=== PATIENT | female | born 1985 | race Caucasian/White ===

== ENCOUNTER 2017-08-27 09:20 | Emergency (ER) | END 2017-08-27 13:42 | disposition home or self-care (01) ==

== ENCOUNTER 2018-06-21 07:51 | Emergency (ER) | payer MEDICAID ==
[~2018-06-21] VITALS: Ht 160 cm; Wt 93.6 kg
[2018-06-21 07:56] VITALS: BP 143/77; PULSE 110; RESP 19; Ht 160 cm; Wt 93.6 kg
[2018-06-21] MEDS ORDERED: BEN25 PO (08:56)
[2018-06-21] MEDS ORDERED: ACET500C5 PO (08:56)
--- NOTE | 2018-06-21 16:20 | ERD ---
ER Documentation Chief Complaint Chief Complaint FLU SX NASAL CONGESTION 37 WEEKS . NO ABD PAIN NO VB HPI 33-year-old female patient with no significant past medical history is currently 37 weeks . Patient is a presents to ED complaining of nasal congestion, headache. Denies any cough, chest pain, shortness of breath, abdominal pain, nausea, vomiting, diarrhea. Denies any vaginal bleeding, vaginal discharge, dysuria, urgency, frequency, hematuria. ROS All systems reviewed and are negative except as per history of present illness. Medications Home Meds Active Scripts Acetaminophen* (Tylophen*) 500 Mg Capsule, 1 CAP PO Q6H PRN for PAIN AND OR ELEVATED TEMP, #20 CAP Prov:NILDA SNOW PA-C 06/21/18 Diphenhydramine Hcl* (Benadryl*) 25 Mg Cap, 25 MG PO Q6, #30 CAP Prov:NILDA SNOW PA-C 06/21/18 Allergies Allergies: Coded Allergies: No Known Allergy (Unverified , 05/05/15) PMhx/Soc History of Surgery: No Anesthesia Reaction: No Hx Neurological Disorder: No Hx Respiratory Disorders: No Hx Cardiac Disorders: No Hx Psychiatric Problems: No Hx Alcohol Use: No Hx Substance Use: No Hx Tobacco Use: No FmHx Family History: No diabetes, No coronary disease Physical Exam Vitals Vital Signs Date Temp Pulse Resp B/P (MAP) Pulse Ox O2 O2 Flow FiO2 Time Delivery Rate 06/21/18 97.8 110 19 143/77 99 07:56 (99) Physical Exam Const: Bpm-krl-rvttzcibs, well-nourished. In no acute distress. Head: Atraumatic, normocephalic. No tenderness of the bilateral sinuses. Eyes: Normal Conjunctiva without injection. No purulent discharge. PERRL. EOMI ENT: Normal external ear. Ear canal without erythema. Tympanic membrane pearly mccord without effusion or bulging. Nasal canal clear with normal turbinates. Moist oropharynx without tonsillar exudates. Non-erythematous pharynx. Uvula midline. No drooling. No trismus. Neck: Full range of motion. No meningismus. No cervical lymphadenopathy. Resp: Clear to auscultation bilaterally. No wheezing, rhonchi, rales, or crackles. No accessory muscle use. No retractions. Cardio: Regular rate and rhythm. No murmurs, rubs or gallops. Abd: Soft, non tender, non distended. Normal bowel sounds. No palpable masses. No rebound tenderness. No guarding. Skin: No petechiae or rashes Back: No midline tenderness. No CVA tenderness. Ext: No cyanosis, or edema. Neur: Awake and alert. Psych: Normal Mood and Affect Procedures/MDM 33-year-old female patient with no significant past medical history is currently 36-weeks , complaining of nasal congestion, and headache. Patient is afebrile and nontoxic-appearing. Headache is also probable tension headache. Low suspicion for intracranial bleed, subarachnoid hemorrhage, meningitis, TIA, stroke, seizures, subdural hematoma, epidural hematoma, or other emergent conditions. Patient will be given a prescription for Benadryl and to continue nasal saline sprays. Differentials include allergic rhinitis versus viral etiology. This patient presents to the ED with symptoms consistent with a viral acute upper respiratory infection. Patient's physical exam include lungs which were clear to auscultation and a normal pulse oximetry. There is a low suspicion for pneumonia, pneumothorax, mononucleosis, pulmonary embolism, epiglottitis, otitis media, otitis externa, viral/strep pharyngitis, sinusitis, myocarditis, pericarditis, endocarditis, peritonsillar abscess, mastoiditis, retropharyngeal abscess, meningitis, sepsis, acute abdomen or other emergent conditions. Patient will be escorted upstairs to OB triage to evaluate baby. Diagnosis: Nasal Congestion, Headache Discharge medications: Tylenol, Benadryl Follow up with primary care physician in 1-2 days. Instructed patient to return to the ED sooner for any worsening symptoms. Patient's questions were answered. Patient is hemodynamically stable. Patient understood and agreed with discharge plan. Patient discharged stable. Disclaimer: Inadvertent spelling and grammatical errors are likely due to EHR/dictation software use and do not reflect on the overall quality of patient care. Also, please note that the electronic time recorded on this note does not necessarily reflect the actual time of the patient encounter. Departure Diagnosis: Primary Impression: Nasal congestion Additional Impression: Headache Headache type: unspecified Headache chronicity pattern: unspecified pattern Intractability: not intractable Qualified Codes: R51 - Headache Condition: Stable Patient Instructions: Headache, Unspecified, Allergic Rhinitis Referrals: COMMUNITY CLINICS YOU HAVE RECEIVED A MEDICAL SCREENING EXAM AND THE RESULTS INDICATE THAT YOU DO NOT HAVE A CONDITION THAT REQUIRES URGENT TREATMENT IN THE EMERGENCY DEPARTMENT. FURTHER EVALUATION AND TREATMENT OF YOUR CONDITION CAN WAIT UNTIL YOU ARE SEEN IN YOUR DOCTORS OFFICE WITHIN THE NEXT 1-2 DAYS. IT IS YOUR RESPONSIBILITY TO MAKE AN APPOINTMENT FOR FOLOW-UP CARE. IF YOU HAVE A PRIMARY DOCTOR --you should call your primary doctor and schedule an appointment IF YOU DO NOT HAVE A PRIMARY DOCTOR YOU CAN CALL OUR PHYSICIAN REFERRAL HOTLINE AT IF YOU CAN NOT AFFORD TO SEE A PHYSICIAN YOU CAN CHOSE FROM THE FOLLOWING [facility] [address] [facility] [address] [facility] [facility] [address] [facility] [facility] [address] [facility] [address] [facility]. [facility] [address] [facility]. [facility] YOU HAVE RECEIVED A MEDICAL SCREENING EXAM AND THE RESULTS INDICATE THAT YOU DO NOT HAVE A CONDITION THAT REQUIRES URGENT TREATMENT IN THE EMERGENCY DEPARTMENT. FURTHER EVALUATION AND TREATMENT OF YOUR CONDITION CAN WAIT UNTIL YOU ARE SEEN IN YOUR DOCTORS OFFICE WITHIN THE NEXT 1-2 DAYS. IT IS YOUR RESPONSIBILITY TO MAKE AN APPOINTMENT FOR FOLOW-UP CARE. IF YOU HAVE A PRIMARY DOCTOR --you should call your primary doctor and schedule and appointment IF YOU DO NOT HAVE A PRIMARY DOCTOR YOU CAN CALL OUR PHYSICIAN REFERRAL HOTLINE AT . IF YOU CAN NOT AFFORD TO SEE A PHYSICIAN YOU CAN CHOSE FROM THE FOLLOWING [facility] INSTITUTIONS: [facility] [address] [place] [address] [facility] [address] [place] [address] [facility] [address] [place] [address] [facility] URGENT CARE/SPECIALTIES Additional Instructions: Usted yan sido dado de nikole del ER en 06/21/18 a las 9am sin embargo usted debe ser escoltado arriba a la Triage del OB sobre la descarga para cerciorarse de que el beb est haciendo alba. Llame al doctor MAANA y apoorva yvonne IRVING PARA DENTRO DE 2-3 FLEMING.Dgale a la secretaria que nosotros le instruimos hacer esta irving.Avise o llame si gomez condicin se empeora antes de la irving. Regresa aqui si peor o no mejor.. NILDA SNOW PA-C Jun 21, 2018 16:20
== END 2018-06-21 09:25 | disposition home or self-care (01) ==
LOC: FTE 07:51
DX: O99.89 Other specified diseases and conditions complicating pregnancy, childbirth and the puerperium (principal); R09.81 Nasal congestion; R51 Headache; Z3A.37 37 weeks gestation of pregnancy
CPT/HCPCS: 99282

== ENCOUNTER 2018-07-18 10:18 | Inpatient (IN) | payer MEDICAID ==
[~2018-07-18] VITALS: Ht 165.1 cm; Wt 95.3 kg
[~2018-07-18 10:18] MED LIST: ACET500C5 PO; BEN25 PO
[2018-07-18] MEDS ORDERED: PREN1TAB71 PO (10:39)
[2018-07-18 10:40] VITALS: Ht 165.1 cm; Wt 95.3 kg
[2018-07-18 10:43] VITALS: BP 129/83
[2018-07-18] MEDS ORDERED: LIDOCAINE 1% (MPF) 30 ML INJ INJ PRN (12:00)
[2018-07-18] MEDS ORDERED: MISOPROSTOL 200 MCG TAB PR PRN (12:00)
[2018-07-18] MEDS ORDERED: BUTORPHANOL 1 MG INJ IV PRN (12:00)
[2018-07-18] MEDS ORDERED: METHYLERGONOVINE 0.2 MG INJ IM PRN (12:00)
[2018-07-18] MEDS ORDERED: BUTORPHANOL 2 MG INJ IV PRN (12:00)
[2018-07-18] MEDS ORDERED: OXYTOCIN 30 UNITS/LR 500 ML IV SCH ×3 (12:00)
[2018-07-18] MEDS ORDERED: OXYTOCIN 30 UNITS/LR 500 ML IV PRN (12:00)
[2018-07-18] MEDS ORDERED: CARBOPROST 250 MCG INJ IM PRN (12:00)
--- NOTE | 2018-07-18 12:11 | TRIAGE ---
OB Triage Datetime Report Generated by CPN: 07/18/2018 12:11 Datetime: 07/18/2018 12:04 Comments: TRANSFERED TO LABOR AND DELIVERY REPORT GIVEN TO YESICA Datetime: 07/18/2018 11:42 Stage of : OB Triage Datetime: 07/18/2018 11:32 Comments: US AT BEDSIDE Datetime: 07/18/2018 10:55 Stage of : OB Triage Labor Evaluation Frequency: 1-5 Monitor Mode: External Duration (sec)2399: 30-50 Pattern: Normal: <= 5 Contractions in 10 Minutes Resting Tone [place]: Relaxed Heart Rate FHR Baseline Rate: 145 Monitor Mode: External US Variability: Moderate 6-25 bpm Accelerations: 15X15 Decelerations: None Category: Category I Pain Presence: None/Denies Pain Type: N/A Datetime: 07/18/2018 10:31 Stage of : OB Triage Assessment Type: Triage Maternal Assessment Level of Consciousness: Fully Conscious DTR's/Clonus: DTRs 2+; No Clonus Headache: Denies Blurred Vision: No Respiratory Effort: Unlabored; Regular Rhythm; Equal Expansion Breath Sounds, Left: Clear and Equal Breath Sounds, Right: Clear and Equal Nausea/Vomiting: Denies RUQ Epigastric Pain: Denies Lower Extremities Edema: None Degree: None Upper Extremities Edema: None Facial Edema: None Temperature Route: Oral Fall Risk Assessment History of Falling: (0) No Secondary Diagnosis: (0) No Ambulatory Aid: (0) Bedrest/Nurse Assist IV Therapy: (0) No Gait: (0) Normal/Bedrest/Immobile Mental Status: (0) Oriented to Own Ability Fall Score: 0 Fall Risk Score Definition: No Risk: No action required Monitor Mode: External (Annotations: INITIAL PLACEMENT ) Monitor Mode: External US (Annotations: INIITIAL PLACEMENT ) Pain Assessment Pain Scale: 0 Pain Presence: None/Denies Pain Type: N/A Datetime: 07/18/2018 10:30 Time of Arrival: 07/18/2018 10:20 EGA: 40.2 Arrived By: Ambulatory Arrived From: Dr. Murillo Chief Complaint: SENT FROM CLINIC FOR NST BPP EFW POST DATES Movement: Present Contractions: Irregular Rupture of Membranes: Denies Vaginal Bleeding: None Vaginal Discharge: Denies Recent Sexual Intercouse: Denies Abdominal Trauma: Not Applicable Patient Complaints: Contractions; Other Time Provider Notified: 07/18/2018 11:40 Provider Notified: DR. GUY Initial Plan: NST BP EFW, Datetime: 04/16/2018 12:04 Fall Score: 0 Fall Risk Score Definition: No Risk: No action required Datetime: 04/16/2018 12:02 EGA: 27.0
[2018-07-18] MEDS: LACTATED RINGER'S 1,000 ML IV SCH ×2 (14:27→23:06)
--- NOTE | 2018-07-18 18:03 | HP ---
"Date/Time of Note Date/Time of Note DATE: 07/18/18 TIME: 17:54 OB - History Hx of Present Free Text/Dictation 33 y.o G5| HOSSEIN 07/16/18 at 40w2d for NST BPP for postdate NST reactive and BPP 8/8 VE 2cm patient desire to have delivery after gave her option to decide. admitted for expectant management poss pitocin augmentation. Chief Complaint: postdate for augmentation/induction Estimated Due Date: Jul 16, 2018 : 5 Para: 2 Spontaneous : 2 Therapeutic : 0 Care: Other Ultrasounds: Other Obstetrical Complications: None Medical Complications: None Past Family/Social History * Past Medical, Surgical, Family and Obstetric Histories reviewed from chart. Blood Type: O- Rubella: unknown RPR/VDRL: Unknown GBS Status: Unknown HBsAG: Unknown OB Admission Exam Vital Signs Vital Signs Vital Signs Date Temp Pulse Resp B/P (MAP) Pulse Ox O2 O2 Flow FiO2 Time Delivery Rate 07/18/18 98.5 129/83 10:43 (98) Physical Exam HEENT: WNL Heart: Rhythm Normal Lungs: Clear, Equal Abdomen: WNL Extremities: Normal Reflexes: Normal Cervical Dilatation: 2cm Effacement: Other Station: Other Membranes: Intact Amniotic Fluid: Unevaluable Heart Rate: 140's Accelerations: Accelerations Present Decelerations: No Decelerations Varibility: Moderate Contractions on Admission: < 5 Minutes Apart Intensity: Mild Last 72 hours Lab Results CBC & BMP 07/18/18 13:23 OB Assessment/Plan Other Assessment: IUP 40w2d in early labor Plan: Expectant Management, Other (poss augmentation) PENG GUY MD Jul 18, 2018 18:03"
[2018-07-19] MEDS: LACTATED RINGER'S 1,000 ML IV SCH ×4 (00:41→23:43)
--- NOTE | 2018-07-19 00:47 | PREAC ---
Date/Time of Note Date/Time of Note DATE: 07/19/18 TIME: 00:46 Anesthesia Eval and Record Evaluation Time Pre-Procedure Interview DATE: 07/19/18 TIME: 00:46 Age 33 Sex female NPO: 8 hrs Preoperative diagnosis IUP Planned procedure L&D Epidural Past Medical History Past Medical History: None Surgery & Anesthesia Issues No known issue Meds Anticoagulation: No Beta Stevo within 24 hr: No Reason Beta Stevo not given: Pt. not on B-Stevo Reported Medications Vit No.130/Iron/FA ( Tablet) 1 Each Tablet, 1 EACH PO 07/18/18 Discontinued Scripts Acetaminophen* (Tylophen*) 500 Mg Capsule, 1 CAP PO Q6H PRN for PAIN AND OR ELEVATED TEMP, #20 CAP Prov:NILDA SNOW PA-C 06/21/18 Diphenhydramine Hcl* (Benadryl*) 25 Mg Cap, 25 MG PO Q6, #30 CAP Prov:NILDA SNOW PA-C 06/21/18 Current Medications Lactated Ringer's 1,000 ml @ 125 mls/hr Q8H IV Last administered on 07/19/18at 00:41; Admin Dose 125 MLS/HR; Start 07/18/18 at 11:59 Butorphanol Tartrate (Stadol) 1 mg Q2H PRN IV .PAIN; Start 07/18/18 at 12:00 Butorphanol Tartrate (Stadol) 2 mg Q2H PRN IV .PAIN; Start 07/18/18 at 12:00 Lidocaine (Xylocaine 1% (Mpf)) 30 ml ONCE PRN INJ .EPISIOTOMY; Start 07/18/18 at 12:00 Oxytocin/Lactated Ringer's 500 ml @ 500 mls/hr ONCE POST IV ; Start 07/18/18 at 12:00 Oxytocin/Lactated Ringer's 500 ml @ 125 mls/hr POST IV ; Start 07/18/18 at 12:00 Oxytocin/Lactated Ringer's 500 ml @ 0 mls/hr ONCE PRN IV .VAGINAL BLEEDING; Start 07/18/18 at 12:00 Methylergonovine Maleate (Methergine) 0.2 mg ONCE PRN IM .VAGINAL BLEEDING; Start 07/18/18 at 12:00 Carboprost Tromethamine (Hemabate) 250 mcg ONCE PRN IM .VAGINAL BLEEDING; Start 07/18/18 at 12:00 Misoprostol (Cytotec) 1,000 mcg ONCE PRN PA .VAGINAL BLEEDING; Start 07/18/18 at 12:00 Oxytocin/Lactated Ringer's 500 ml @ 0 mls/hr FOR AUGMENTATION IV Last administered on 07/18/18at 14:34; Admin Dose 1 MLS/HR; Start 07/18/18 at 12:00 Meds reviewed: Yes Allergies Coded Allergies: No Known Drug Allergies (Verified Allergy, Unknown, 07/18/18) Allergies Reviewed: Yes Labs/Studies Labs Reviewed: Reviewed by anesthesiologist Result Diagram: 07/18/18 1323 Laboratory Tests 07/18/18 13:23 Blood Bank Test 07/18/18 13:23 Antibody Screen NEGATIVE Blood Type O NEGATIVE Rh Immune Globulin Candidate NO test: Positive Studies: ECG Pre-procedure Exam Last vitals Vital Signs Date Temp Pulse Resp B/P (MAP) Pulse Ox O2 O2 Flow FiO2 Time Delivery Rate 07/18/18 98.5 129/83 10:43 (98) Airway: Adequate mouth opening, Adequate thyromental dist Mallampati: Mallampati II Teeth: Normal Lung: Normal Heart: Normal ASA Physical Status ASA physical status: 2 Emergency: None Planned Anesthetic Neuraxial: Epidural Planned Pain Management Epidural Pre-operative Attestations Prior to commencing anesthesia and surgery, the patient was re-evaluated, there was verification of: *The patient's identity *The results of appropriate recent lab work and preoperative vital signs *The above evaluation not changing prior to induction *Anesthetic plan, risk benefits, alternative and complications discussed with patient/family; questions answered; patient/family understands, accepts and wishes to proceed. MYLA LAI MD Jul 19, 2018 00:47
[2018-07-19] MEDS ORDERED: ROPIVACAINE 0.2% 100 ML ONE (00:51)
[2018-07-19] MEDS ORDERED: ROPIVACAINE 0.2% 100ML BAG EPI SCH (01:00)
--- NOTE | 2018-07-19 08:12 | PAC ---
Date/Time of Note Date/Time of Note DATE: 07/19/18 TIME: 08:11 Post-Anesthesia Notes Post-Anesthesia Note Last documented vital signs Vital Signs Date Temp Pulse Resp B/P (MAP) Pulse Ox O2 O2 Flow FiO2 Time Delivery Rate 07/18/18 98.5 129/83 10:43 (98) Activity: WNL Respiratory function: WNL Cardiovascular function: WNL Mental status: Baseline Pain reasonably controlled: Yes Hydration appropriate: Yes Nausea/Vomiting absent: Yes Comments BP:118/56, P:88, Spo2:100%, T:98,8 MYLA LAI MD Jul 19, 2018 08:12
[2018-07-19] MEDS ORDERED: DIPHENHYDRAMINE 50 MG INJ IV PRN (08:30)
[2018-07-19] MEDS ORDERED: NALOXONE (0.4 MG/ML) INJ IV PRN (08:30)
[2018-07-19] MEDS ORDERED: ONDANSETRON 4 MG INJ IV PRN ×2 (08:30→11:00)
[2018-07-19] MEDS ORDERED: FENTAnyl 2MCG/ML-ROPIV 0.2% 100 ML BAG EPI SCH (08:30)
[2018-07-19] MEDS ORDERED: OXYTOCIN 30 UNITS/LR 500 ML IV SCH (10:41)
[2018-07-19] MEDS ORDERED: LACTATED RINGER'S 1,000 ML IV* SCH (10:41)
--- NOTE | 2018-07-19 10:41 | LDN ---
Date/Time of Note Date/Time of Note DATE: 07/19/18 TIME: 10:38 Delivery Summary Weeks of Gestation Term gestation Placenta Delivered: Spontaneously Meconium: none Episiotomy: Yes Indication for episiotomy heart rate tracing category 2 Laceration repair: Medial episiotomy repaired with 2-0 Vicryl in layered fashion Anesthesia type: Epidural Estimated blood loss: 300 Sponge & Needle done & correct: Yes All needle counts correct: Yes Any foreign bodies felt in the: No Infant Delivery Information Sex Sex: male Apgars 1 Minute: 9 5 Minute: 9 Suctioning Nose & mouth suctioned at vinh: Yes Delee suction performed: No Umbilical Cord Umbilical cord with: 3 Vessels Cord presentations: nuchal cord (Tight nuchal cord around the neck x1 reduced manually) Cord Blood was obtained: Yes Mother & Baby Disposition Disposition Baby's weight 7 pounds 2 ounces/ 3225 gr Patient received ampicillin and gentamicin for positive GBS Mom & Baby to Maternity; Good: Yes Baby to NICU: Yes Copies To: CC: ESTEBAN BALTAZAR ; LUZ CASTANEDA MD Jul 19, 2018 10:41
[2018-07-19] MEDS ORDERED: WITCH HAZEL/GLYCERIN PAD PR PRN (11:00)
[2018-07-19] MEDS ORDERED: MISOPROSTOL 200 MCG TAB PR PRN (11:00)
[2018-07-19] MEDS ORDERED: ACETAMINOPHEN 325 MG TAB PO PRN (11:00)
[2018-07-19] MEDS ORDERED: CARBOPROST 250 MCG INJ IM PRN (11:00)
[2018-07-19] MEDS ORDERED: METHYLERGONOVINE 0.2 MG INJ IM PRN (11:00)
[2018-07-19] MEDS ORDERED: SENNA/DOCUSATE NA (8.6MG/50MG) TAB PO PRN (11:00)
[2018-07-19] MEDS ORDERED: BENZOCAINE 20% 56 ML SPRAY TOP PRN (11:00)
[2018-07-19] MEDS ORDERED: LANOLIN HPA 1 PKT TOP PRN (11:00)
[2018-07-19] MEDS ORDERED: OXYTOCIN 30 UNITS/LR 500 ML IV PRN (11:00)
[2018-07-19] MEDS ORDERED: DIBUCAINE 1% 30 GM OINT TOP PRN (11:00)
[2018-07-19] MEDS ORDERED: MAGNESIUM HYDROXIDE 30ML CUP PO PRN (11:00)
[2018-07-19] MEDS ORDERED: MINERAL OIL LIGHT 10 ML VIAL TOP ONE (11:30)
[2018-07-19] MEDS ORDERED: CEFAZOLIN 1 GM/50 ML (PMX) 50 ML IVPB SCH (14:00)
--- NOTE | 2018-07-19 14:18 | LDN ---
Date/Time of Note Date/Time of Note DATE: 07/19/18 TIME: 14:15 Delivery Summary postdates Placenta Delivered: Spontaneously Meconium: Thick Episiotomy: Yes Indication for episiotomy tachycardia Laceration repair: medial episiotomy repaired with 2.0 vicryl and 3.0 vicryl in layered fashion Anesthesia type: Epidural Estimated blood loss: 300 Sponge & Needle done & correct: Yes All needle counts correct: Yes Any foreign bodies felt in the: No Infant Delivery Information Sex Infant Sex: male Apgars 1 Minute: 8 5 Minute: 9 Suctioning Nose & mouth suctioned at vinh: Yes Delee suction performed: No Umbilical Cord Umbilical cord with: 3 Vessels Cord presentations: no nuchal cord Cord Blood was obtained: Yes Mother & Baby Disposition Disposition Baby's weight 8lbs 10 oz/ 3900 grams Mom & Baby to Maternity; Good: Yes Baby to NICU: No Copies To: CC: DEANA RICO MD ; LUZ CASTANEDA MD Jul 19, 2018 14:18
[2018-07-19] MEDS ORDERED: CEFAZOLIN 2 GM/50 ML (PMX) 50 ML IVPB ONE (16:00)
[2018-07-19 18:30] VITALS: BP 121/79; PULSE 92; RESP 18
[2018-07-19] MEDS: IBUPROFEN 600 MG TAB PO PRN (18:41)
[2018-07-19 20:30] VITALS: BP 123/70; PULSE 67; RESP 18
[2018-07-19] MEDS: ACETAMINOPHEN 325 MG TAB PO PRN (20:33)
[2018-07-19] MEDS: CEFAZOLIN 1 GM/50 ML (PMX) 50 ML IVPB SCH (23:43)
[2018-07-19 23:45] VITALS: BP 125/71; PULSE 68; RESP 18
[2018-07-20] MEDS: IBUPROFEN 600 MG TAB PO PRN ×3 (00:19→23:41)
[2018-07-20 04:15] VITALS: BP 133/85; PULSE 86; RESP 18
[2018-07-20] MEDS: ACETAMINOPHEN 325 MG TAB PO PRN ×2 (04:19→20:03)
[2018-07-20 08:00] VITALS: BP 120/74; PULSE 77; RESP 20
[2018-07-20] MEDS: CEFAZOLIN 1 GM/50 ML (PMX) 50 ML IVPB SCH ×2 (08:07→16:13)
--- NOTE | 2018-07-20 10:04 | QN ---
Documentation Comment PPD #1 s/p Pt feels well but still a little sore where the stitches are. well but still with minimal milk. T=98.1 BP 120/74 Fundus frim. Minimal lochia. Ext 1+ edema, NT. WBC 14.8 Hgb 11.2 Plts 199K P: Continue care. Plan d/c tomorrow. RIOS MUELLER MD Jul 20, 2018 10:04
[2018-07-20] MEDS: LACTATED RINGER'S 1,000 ML IV SCH ×2 (11:59→19:59)
[2018-07-20 15:55] VITALS: BP 127/81; PULSE 79; RESP 18
[2018-07-20 19:50] VITALS: BP 128/86; PULSE 88; RESP 18
[2018-07-21 03:50] VITALS: BP 126/78; PULSE 69; RESP 18
[2018-07-21] MEDS: LACTATED RINGER'S 1,000 ML IV SCH (03:59)
[2018-07-21] MEDS: IBUPROFEN 600 MG TAB PO PRN (05:25)
[2018-07-21 08:00] VITALS: BP 134/85; PULSE 67; RESP 20
--- NOTE | 2018-07-21 11:32 | PD.PPDC ---
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 Condition [id number] Patient Condition: Liknl5n Fair Diet Gqhjv0Yd Diet: Zvvuo6u Resume Regular Diet Activity/Restrictions [id number] Activity: Dnptj7k Normal Activity May Shower Hnwig2Ur Restrictions: Ynoks6f No Exercising No Lifting No Driving No Sexual Activity Nothing in the Vagina No [place] No Tampons, douche Follow-up Follow-up with Physician: 3, Week/Weeks Return to clinic for Fbswa1Wd [employer]AT [employer]OR MECH[employer]IC Instructions: Sdkuq6w Fever greater than 101 Chills Worsening abdominal pain Excessive Vaginal Bleeding More than 2 pads per hour Unable to tolerate diet [id number] OB Instructions: Iethx3f Breast Tenderness Depression Blurried Vision Headache Rhuob8Tw Surgical Instructions: Eedmh2s Incisional Drainage Incisional Redness DEANA RICO MD Jul 21, 2018 11:32
--- NOTE | 2018-07-21 11:34 | DS ---
Date/Time of Note Date/Time of Note DATE: 07/21/18 TIME: 11:33 Obstetrical Discharge Record Final Diagnosis Final Diagnosis: Term delivered Vaginal Delivery Obstetrical Delivery: Spontaneous, Laceration, Repaired Condition on Discharge Physical Assessment Last Vitals: stable afebile Voiding: Yes Bowel Movement: Yes Breast: Soft, non-tender, Filling Fundus: Firm Calf Tenderness: No Patient Condition: DEANA Montiel MD Jul 21, 2018 11:34
--- NOTE | 2018-07-22 13:05 | DELSUM ---
Delivery Summary A-C Datetime Report Generated by CPN: 07/22/2018 13:05 DELIVERY PERSONNEL Contact Center Professional: Mao, Hue/Villondo, Anita MATERNAL INFORMATION Delivery Anesthesia: Epidural Medications in Delivery: pitocin 30 units Delivery QBL (ml): 312 Placenta Cultured: Yes Maternal Complications: None LABOR SUMMARY EDC: 07/16/2018 00:00 No. Babies in Womb: 1 Attempted: No Labor Anesthesia: Epidural LABOR INFORMATION Reason for Induction: Not Applicable Onset of Labor: 07/19/2018 06:09 Complete Dilatation: 07/19/2018 12:30 Oxytocin: Augmentation Group B Beta Strep: Negative Antibiotics # of Doses: 0 Steroids Given: None Reason Steroids Not Administered: Not Applicable MEMBRANES Membranes Rupture Method: Spontaneous Rupture of Membranes: 07/19/2018 06:30 Length of Rupture (hr): 6.37 Amniotic Fluid Color: Heavy Meconium Amniotic Fluid Amount: Moderate Amniotic Fluid Odor: None STAGES OF LABOR Stage 1 hr: 6 Stage 1 min: 21 Stage 2 hr: 0 Stage 2 min: 22 Stage 3 hr: 0 Stage 3 min: 3 Total Time in Labor hr: 6 Total Time in Labor min: 46 VAGINAL DELIVERY Episiotomy: Median Laceration Extension: N/A Laceration Type: None Laceration Repair: Yes Initial Vag Sponge Count: 10 Final Vag Sponge Count: 10 Initial Vag Sharps Count: 1 Final Vag Sharps Count: 5 Sponge Count Correct: Yes; Vaginal Sweep Performed Sharps Count Correct: Yes BABY A INFORMATION Infant Delivery Date/Time: 07/19/2018 12:52 Method of Delivery: Vaginal Born in Route : No : N/A Forceps: N/A Vacuum Extraction: N/A Shoulder Dystocia : N/A SHOULDER DYSTOCIA BABY A Infant Delivery Date/Time: 07/19/2018 12:52 PRESENTATION/POSITION BABY A Presentation: Cephalic Cephalic Presentation: Vertex Vertex Position: Left Occipital Anterior Breech Presentation: N/A PLACENTA INFORMATION BABY A Placenta Delivery Time : 07/19/2018 12:55 Placenta Method of Delivery: Spontaneous Placenta Status: Delivered SCORES BABY A Heart Rate 1 min: >100 bpm Resp Effort 1 min: Good Cry Reflex Irritability 1 min: Cough/Sneeze/Pulls Away Muscle Tone 1 min: Active Motion Color 1 min: Blue/Pale Resuscitation Effort 1 min: Tactile Stimulation SCORE 1 MIN: 8 Heart Rate 5 min: >100 bpm Resp Effort 5 min: Good Cry Reflex Irritability 5 min: Cough/Sneeze/Pulls Away Muscle Tone 5 min: Active Motion Color 5 min: Body [place], Extremit Blue Resuscitation Effort 5 min: Tactile Stimulation SCORE 5 MIN: 9 INFORMATION BABY A Gestational Age at Delivery: 40.3 Gestational Status: Full Term- 39- 40.6 Weeks Outcome : Liveborn Infant Condition : Stable Infant Sex: Male IDENTIFICATION/MEDS BABY A ID Band Number: [id number] ID Band Location: Right Leg; Left Arm Sensor Applied: Yes Sensor Number: [id number] Sensor Location : Cord Clamp Vitamin K Given : Not Given Erythromycin Given: Not Given WEIGHT/LENGTH BABY A Infant Birthweight (gm): 3900 Weight (lb): 8 Infant Weight (oz): 10 Length (in): 20.00 Infant Length (cm): 50.80 CORD INFORMATION BABY A No. Cord Vessels: 3 Nuchal Cord : N/A Cord Blood Taken: Yes Suction: Mouth; Nose ASSESSMENT BABY A Infant Complications: Multiple Variable Decels; Meconium Infant Complications- Other: thick meconium Physical Findings at Delivery: Molding of the Head; Within Normal Limits Infant Respirations: Appears Normal Batch Dumper/ALS Called : No Infant Care By: Mimi Valencia RN Transferred To: Remains with Mother
== END 2018-07-21 12:45 | disposition home or self-care (01) | DRG 807 ==
LOC: OBT 10:18 → L-D 10:18 → OBT 11:40 → L-D 11:40 → PP1 07-19 18:10
PROVIDERS: ADMIT Obstetrics & Gynecology; ATTEND Obstetrics & Gynecology
PROC: 10E0XZZ Delivery of Products of Conception, External Approach (ICD-10-PCS; principal; 2018-07-19)
PROC: 0W8NXZZ Division of Female Perineum, External Approach (ICD-10-PCS; 2018-07-19)
DX: O48.0 Post-term pregnancy (principal); O76 Abnormality in fetal heart rate and rhythm complicating labor and delivery; Z37.0 Single live birth; Z3A.40 40 weeks gestation of pregnancy
CPT/HCPCS: 62319; 76815; 76818; 81001; 85025; 85610; 85730; 86592; 86850; 86885; 86900; 86901; 87086; 87340; 88307; 99464; G0463; J0690; J2590; J2790; J2795; J3010; J7120